=== PATIENT | female | born 1990 | race African-American/Black ===

== ENCOUNTER 2021-08-12 12:53 | Emergency (ER) | payer OTHER ==
[2021-08-12] MEDS ORDERED: IBUPROFEN 600 MG TABLET PO STA (15:10)
--- NOTE | 2021-08-12 15:11 | ED Physician Documentation ---
History of Present Illness - Stated complaint Stated Complaint: CHEST PX - Chief complaint Chief Complaint: Cardiac - Additonal information Additional information: 31-year-old female presents emergency department for evaluation of 2 days pain in her left upper chest. Describes it as a pinching sensation. No cough or shortness of breath. Not worse with movement. No history of similar. She does vape/use tobacco. No fevers. Denies any history of hypertension or diabetes. Takes no prescribed medications. Is not on any hormones. No unilateral leg swelling, recent surgery or history of cancer. Review of Systems Constitutional: reports: Reviewed and negative Eyes: reports: Reviewed and negative Ears: reports: Reviewed and negative Nose: reports: Reviewed and negative Cardiac: reports: Chest pain / pressure. denies: Palpitations, Calf pain Respiratory: reports: Reviewed and negative GI: reports: Reviewed and negative : reports: Reviewed and negative PD PAST MEDICAL HISTORY - Present Medications Home Medications: Ambulatory Orders Medication Instructions Recorded Confirmed No Known Home Medications 08/12/21 08/12/21 - Allergies Allergies/Adverse Reactions: Allergies Allergy/AdvReac Type Severity Reaction Status Date / Time No Known Drug Allergies Allergy Verified 08/12/21 13:00 PD ED PE NORMAL - General General: Alert and oriented X 3, No acute distress, Well developed/nourished - HEENT HEENT: Atraumatic, Ears normal, Moist mucous membranes - Neck Neck: Supple, no meningeal sign, No JVD - Cardiac Cardiac: RRR, No murmur, No gallop, Strong equal pulses, Other (Unable to reduce chest tenderness with palpation) - Respiratory Respiratory: No respiratory distress, Clear bilaterally - Abdomen Abdomen: Normal bowel sounds, Soft, Non tender, Non distended - Female Female : Deferred, Pt declined - Derm Derm: Normal color, Warm and dry - Extremities Extremities: No deformity, No tenderness to palpate, Normal ROM s pain - Neuro Neuro: Alert and oriented X 3, projection technician 2-12 intact Eye Opening: Spontaneous Motor: Obeys Commands Verbal: Oriented GCS Score: 15 - Psych Psych: Normal mood Results - Vitals Vitals: Vital Signs - 24 hr 08/12/21 08/12/21 08/12/21 13:00 14:42 15:23 Temperature 36.3 C L Heart Rate 71 66 70 Respiratory 16 16 18 Rate Blood Pressure 124/66 122/69 131/81 H O2 Saturation 99 100 98 Oxygen O2 Source Room air - EKG (time done) 1313 Rate: Rate (enter#) (71) Rhythm: NSR Wells: Normal Intervals: Normal NV. No: Prolonged QT QRS: Normal Ischemia: Non specific changes Compare to prior EKG: Old EKG unavailable Computer interpretation: Agree with computer - Labs Labs: Laboratory Tests 08/12/21 08/12/21 15:00 15:00 Sodium 136 Potassium 3.7 Chloride 102 Carbon Dioxide 23 Anion Gap 11.0 BUN 12 Creatinine 0.6 Estimated GFR (MDRD) 142 Glucose 104 H Calcium 9.2 Troponin I High Sens < 2.3 L PD MEDICAL DECISION MAKING - ED course Complexity details: considered differential, d/w patient ED course: 31-year-old female presents emergency department for evaluation of a pinch in her left upper chest. Has been present now for about 2 days. No cough fevers or congestion. She is PERC negative. EKG is nonischemic. Screening labs including troponin are negative. Symptoms improved following ibuprofen here in the emergency department. I suspect she may have musculoskeletal strain despite the lack of pain on palpation or movement. Emergent return precautions otherwise discussed Departure - Departure Disposition: Home, Self Care Clinical Impression: Chest pain Qualifiers: Chest pain type: unspecified Qualified Code(s): R07.9 - Chest pain, unspecified Condition: Stable Record reviewed to determine appropriate education?: Yes Instructions: ED Chest Pain Noncardiac Ch Comments: Jyoti you are seen today in the emergency department for a pinch in your left upper chest. Your screening labs including a troponin to check for heart attack are normal. Your EKG does not show any worrisome findings. We did give you a dose of ibuprofen here in the emergency department which seems to have improved your symptoms. I do suspect that you likely have some muscle strain or pull in your upper chest. You can take 600 mg of ibuprofen with food 2-3 times a day or alternatively 500 mg of Tylenol for any discomfort. I do advise that you stop smoking. Please discuss this ED visit with your primary care provider. Return to the emergency department for fevers, severe shortness of breath any fainting episodes or chest pain that gets worse with exertion.
[2021-08-12 15:17] LABS: CALCIUM 9.2 mg/dL (8.5-10.3); CREATININE 0.6 mg/dL (0.4-1.0); POTASSIUM 3.7 mmol/L (3.5-5.0)
[2021-08-12 16:03] VITALS: BP 121/68
== END 2021-08-12 16:01 | disposition home or self-care (01) ==
LOC: ED 12:53
DX: R07.9 Chest pain, unspecified (principal)
CPT/HCPCS: 36415; 80048; 84484; 93005; 99282; 99283; A9270